=== PATIENT | female | born 1970 ===

== ENCOUNTER 2017-11-03 15:14 | Emergency (ER) | payer BC ==
[2017-11-03 15:22] VITALS: PULSE 67; RESP 12; TEMP 970.8; O2SAT 100
--- NOTE | 2017-11-03 16:27 | C.PDOC ---
History Of Present Illness 47 year old female presents to the ED with c/o right knee pain which began a couple days ago. Patient reports pain with movement and had been unable to find relief after applying ice pack. Patient denies falls or recent trauma/injury. Time Seen by Provider: 11/03/17 15:41 Chief Complaint (Nursing): Lower Extremity Problem/Injury History Per: Patient History/Exam Limitations: no limitations Onset/Duration Of Symptoms: Days Current Symptoms Are (Timing): Still Present Additional History Per: Patient - Knee Description Of Injury: denies: Fell, Twisted Past Medical History Reviewed: Historical Data, Nursing Documentation, Vital Signs Vital Signs: Last Vital Signs Temp 970.8 F H 11/03/17 15:17 Pulse 67 11/03/17 15:17 Resp 12 11/03/17 15:17 BP Pulse Ox 100 11/03/17 16:27 - Medical History PMH: Back Problems, HTN (NO MEDS), Hypothyroidism Denies: Chronic Kidney Disease Surgical History: No Surg Hx - [facility] Procedures GAIT TRAINING/AMBULAT TREATMENT USING ASSIST EQUIPMENT (04/28/17) INJECT/INFUSE NEC (08/30/13) REPOSITION LEFT METATARSAL WITH INT FIX, OPEN APPROACH (04/28/17) Family History: States: Unknown Family Hx - Social History Hx Alcohol Use: Yes Hx Substance Use: No - Immunization History Hx Tetanus Toxoid Vaccination: No Hx Influenza Vaccination: No Hx Pneumococcal Vaccination: No Review Of Systems Musculoskeletal: Positive for: Other (right knee pain ) Physical Exam - Physical Exam Appears: Non-toxic, No Acute Distress Skin: Normal Color, Warm, Dry Extremity: Normal ROM, No Tenderness, Capillary Refill (less than 2 seconds ), No Deformity, No Swelling Neurological/Psych: Oriented x3, Normal Speech, Normal Cognition, Normal Sensation ED Course And Treatment O2 Sat by Pulse Oximetry: 100 (on RA) Pulse Ox Interpretation: Normal - Other Rad R knee X-Ray: Interpreted by Me (neg) Progress Note: ice packs, motrin PO Medical Decision Making Medical Decision Making: knee strain vs cramp no acute injury, normal exam, no edema, no joint effusion, normal distal movement/sensation, NOT c/w sciatica Disposition Doctor Will See Patient In The: Office Counseled Patient/Family Regarding: Studies Performed, Diagnosis - Disposition Referrals: Rosas Hogan III, MD [Staff Provider] - Deloris Snider MD [Staff Provider] - Disposition: HOME/ ROUTINE Disposition Time: 16:27 Condition: GOOD Additional Instructions: sigue hielo 1/2 hora por hora, nada caliente Ibuprofeno 400-600 mg cada 6 horas iman necessario mantiene con RENÉ bendaje iman necessario. Sigue con Dr. Hogan- [facility] iman necessario. Instructions: Knee Pain (ED) Forms: [employer] (Wallisian) Print Language: VIETNAMESE - Clinical Impression Clinical Impression: Knee strain - Scribe Statement The provider has reviewed the documentation as recorded by the Scribe (Yasmin Abel) Provider Attestation: All medical record entries made by the Scribe were at my direction and personally dictated by me. I have reviewed the chart and agree that the record accurately reflects my personal performance of the history, physical exam, medical decision making, and the department course for this patient. I have also personally directed, reviewed, and agree with the discharge instructions and disposition.
--- NOTE | 2017-11-03 16:34 | RAD ---
PROCEDURE: Right Knee Radiographs. HISTORY: R knee pain, no injury COMPARISON: None. FINDINGS: BONES: Normal. No fracture. JOINTS: Normal. No osteoarthritis. JOINT EFFUSION: None. OTHER FINDINGS: None. IMPRESSION: Normal radiographs of the right knee.
== END 2017-11-03 16:34 | disposition home or self-care (01) ==
LOC: C.ER 15:14
DX: S86.911A Strain of unspecified muscle(s) and tendon(s) at lower leg level, right leg, initial encounter (principal); X58.XXXA Exposure to other specified factors, initial encounter; Y92.9 Unspecified place or not applicable